=== PATIENT | female | born 1985 | race Caucasian/White ===

== ENCOUNTER → 2020-12-02 08:44 | Outpatient (CLI) | payer BC, SELFPAY ==
--- NOTE | ~2020-12-02 | MMUS_ITS ---
EXAMINATION: MM diag amalia implant BI w anam, US breast BI complete HISTORY: Rest pain with fibrocystic changes TECHNIQUE: Additional 3-D tomosynthesis images of the breasts were performed and synthetic 2-D images were generated. CAD analysis was submitted and interpreted. High resolution complete bilateral breas t ultrasound was performed. COMPARISON: None BREAST PARENCHYMAL COMPOSITION: The breasts are heterogenously dense, which may obscure small masses. FINDINGS: MAMMOGRAPHIC FINDINGS: There are no suspicious masses, calcifications or architectural distortion in either breast to sugges t malignancy. ULTRASOUND: Right breast ultrasound: At 1:00, 1 cm from the nipple, there is a cluster of microcysts measuring up to 1.2 cm conglomeration. At 2:00, 2 cm from the nipple, there is a 3 mm cyst. No suspicious masses to suggest malignancy. Left breast ultrasound: Normal heterogeneous echotexture without focal mass. IMPRESSION: 1. No evidence for malignancy in either breast. 2. Routine yearly screening mammogram and regular clinical breast examination are recommended. BI-RADS Category 2: Benign finding(s). Reviewed, dictated and finalized at location A. IMPRESSION: 1. No evidence for malignancy in either breast. 2. Routine yearly screening mammogram and regular clinical breast examination a re recommended. BI-RADS Category 2: Benign finding(s).
== END ==
PROVIDERS: Visit Provider Obstetrics & Gynecology
DX: N64.4 Mastodynia (principal)
CPT/HCPCS: 76641; 77062; 77066; G0279

== ENCOUNTER 2022-02-04 09:25 | Emergency (ER) | payer BC, SELFPAY ==
[2022-02-04 09:36] VITALS: BP 148/87; PULSE 72; RESP 16; TEMP 36.7; O2SAT 98
--- NOTE | 2022-02-04 10:06 | ED.SKABFB ---
HPI - Skin/Abscess/Foreign Bdy General Chief complaint: Skin/Abscess/Foreign Body Stated complaint: Possible Shingles on Face Time Seen by Provider: 02/04/22 09:28 Source: patient Mode of arrival: ambulatory Limitations: no limitations History of Present Illness HPI narrative: This is a 36-year-old female that presents to the emergency department for rash noted on her face today. Reports she initially noted some burning and itching on the right side of her face. She then noted a blistering rash in the area. Reports previous history of shingles in this area. Her symptoms feel the same as previous episode. Does report increased stress in her life recently. Denies fever, or any new soaps, lotions or detergents. Related Data Allergies Allergy/AdvReac Type Severity Reaction Status Date / Time No Known Allergies Allergy Verified 02/04/22 09:46 Review of Systems Review of Systems: CONSTITUTIONAL: Denies fever SKIN: Reports rash and itching. All systems reviewed & are unremarkable except as noted in HPI and below PMFSH Past Medical History Medical History Acute serous otitis media Anxiety B12 deficiency BMI 27.0-27.9,adult Depression Encounter to establish care Generalized anxiety disorder with panic attacks Family History Family History Father Heart disease Mother Alcoholism Hypertension Depression Thyroid disorder Grandparent Hypertension Heart disease Grandparent Diabetes mellitus Hypertension Depression Cerebrovascular accident Social History Social History Smoking status: Never smoker Alcohol intake: current Alcohol use details: rarely Substance use: never Substance use type: does not use Exam Narrative: GENERAL: Well-appearing, well-nourished, and in no acute distress. HEAD: Normocephalic, atraumatic. EYES: EOMI. ENT: Nares clear, no rhinorrhea or epistaxis. Mucous membranes moist. Oropharynx without tonsillar hypertrophy exudate or other lesions. Bilateral TMs pearly tyson non-bulging NECK: Supple. No adenopathy or masses. CHEST: No respiratory distress. HEART: Regular rate EXTREMITIES: Normal range of motion. No edema. SKIN: Warm, dry. Right cheek with papulovesicular lesions in a group NEURO: No focal deficits. Alert and oriented x3. PSYCH: Normal mood and affect Course Vital Signs Vital signs: Vital Signs Temperature 98.1 F 02/04/22 09:36 Pulse Rate 72 02/04/22 09:36 Respiratory Rate 16 02/04/22 09:36 Blood Pressure 148/87 H 02/04/22 09:36 Pulse Oximetry 98 02/04/22 09:36 Temperature 98.1 F 02/04/22 09:36 Pulse Rate 72 02/04/22 09:36 Respiratory Rate 16 02/04/22 09:36 Blood Pressure 148/87 H 02/04/22 09:36 Pulse Oximetry 98 02/04/22 09:36 MDM - Skin/Abscess/Foreign Bdy MDM Narrative Medical decision making narrative: Patient presents to the emergency department for a rash that appears consistent with herpes zoster. Patient does report previous history of this in the same distribution. Will be started on oral antivirals. Instructed to follow-up with her primary doctor. She was given warnings to return to the ER Critical Care Time Critical Care Time Critical Care Time: No Discharge Plan Discharge Clinical Impression: Herpes zoster Qualifiers: Herpes zoster complications: without complications Qualified Code(s): B02.9 - Zoster without complications Patient Disposition: Home, Self-Care Condition: Stable Instructions: Shingles (ED) Additional Instructions: Return to the emergency department if you experience fever, eye involvement, abnormal drainage from your wounds, or any other symptoms that are concerning to you Take Valacyclovir as prescribed Follow up with your primary care doctor Prescriptions: New valacyclovir 1 gram tablet 1,000 mg PO Q
== END 2022-02-04 10:20 | disposition home or self-care (01) ==
PROVIDERS: Emergency Provider Emergency Medicine; PCP Nurse Practitioner Family
DX: B02.9 Zoster without complications (principal); E53.8 Deficiency of other specified B group vitamins; F32.A Depression, unspecified; F41.1 Generalized anxiety disorder
CPT/HCPCS: 99283

== ENCOUNTER 2022-06-03 01:55 | Emergency (ER) | payer BC, SELFPAY ==
[2022-06-03] VITALS (24 sets, daily range): BP systolic 110–168; BP diastolic 68–109; PULSE 63–101; RESP 16–24; TEMP 36.5–37.2; O2SAT 91–100
--- NOTE | ~2022-06-03 | CT_ITS ---
EXAMINATION: CT abdomen pelvis wo con DATE: 06/03/2022 02:54 INDICATION: Right flank pain. TECHNIQUE: Computed tomography (CT) of the abdomen and pelvis was performed without intravenous contr ast. Automated exposure control and iterative reconstruction technique were employed. The dose-length product was 419.82 mGy-cm. COMPARISON: None. FINDINGS: The visualized portions of the lung bases demonstrate mild atelectasis. No pleural effusion . The heart size is normal. No pericardial effusion. Pectus excavatum is noted. There are bilateral b reast implants. The liver, gallbladder, spleen, pancreas, adrenal glands, and kidneys are normal. The re is diffuse wall thickening in the bladder. There is fat stranding around the right ureter. A calci fication in right pelvis is likely a phlebolith. There is an intrauterine device in expected position . There is diverticulosis of the colon without evidence of diverticulitis. There are no dilated loops of bowel. The appendix is normal. There are no pathologically enlarged lymph nodes. There is no free intraperitoneal fluid. There is severe lower lumbar spondylosis. IMPRESSION: 1. Diffuse bladder wall thickening and fat stranding around the right ureter suspicious for urinary t ract infection. Reviewed, dictated and finalized at location A. IMPRESSION: 1. Diffuse bladder wall thickening and fat stranding around the right ureter preston spicious for urinary tract infection.
--- NOTE | 2022-06-03 02:03 | PC.NURSE ---
Patient states her right flank pain started at approx 2330 last night and radiates to her lower abd. Patient also states increased urinary frequency. Patient states some nausea. Patient denies history of kidney stone.
--- NOTE | 2022-06-03 02:08 | ED.GENADULT ---
HPI - General Adult General Chief complaint: Abdominal Pain <Gabriel Robledo MD - Last Filed: 06/03/22 02:10> Stated complaint: abdominal pain <Gabriel Robledo MD - Last Filed: 06/03/22 02:10> Time Seen by Provider: 06/03/22 02:04 <Gabriel Robledo MD - Last Filed: 06/03/22 02:10> History of Present Illness HPI narrative: Patient is a 37-year-old female who presents the emergency department with chief complaint of right-sided flank and abdominal pain. The patient reports that around 11 PM she had sudden onset of sharp pain reports it radiates to the front of her abdomen reports she had nausea but this reports has not had pain like this before. Patient states originally she thought she had gas but it was in the past and reports that the pain is not improved by report she is unable to get comfortable in any position. Patient reports she has an IUD <Gabriel Robledo MD - Last Filed: 06/03/22 02:10> Related Data Allergies/adverse reactions: Allergies Allergy/AdvReac Type Severity Reaction Status Date / Time No Known Allergies Allergy Verified 06/03/22 02:03 <Gabriel Robledo MD - Last Filed: 06/03/22 02:10> Review of Systems Review of Systems: A 10 system review of systems was completed on the patient and is negative except for what is stated in the HPI. Nursing and ancillary documentation was reviewed. <Gabriel Robledo MD - Last Filed: 06/03/22 02:10> [facility] Past Medical History Medical History: Medical History Acute serous otitis media Anxiety B12 deficiency BMI 27.0-27.9,adult Depression Encounter to establish care Generalized anxiety disorder with panic attacks Herpes zoster (02/04/22) recurrent shingles right face 2nd episode 02/04/2022 <Gabriel Robledo MD - Last Filed: 06/03/22 02:10> Family History Family History: Family History Father Heart disease Mother Alcoholism Hypertension Depression Thyroid disorder Grandparent Hypertension Heart disease Grandparent Diabetes mellitus Hypertension Depression Cerebrovascular accident <Gabriel Robledo MD - Last Filed: 06/03/22 02:10> Social History Social History: Social History Smoking status: Never smoker Alcohol intake: current Drinks per week: 6 Alcohol use details: rarely Substance use: never Substance use type: does not use <Gabriel Robledo MD - Last Filed: 06/03/22 02:10> Exam Narrative: GENERAL: Well-appearing, well-nourished, and in no acute distress. HEAD: Normocephalic, atraumatic. EYES: PERRLA and EOMI. ENT: Nares clear, no rhinorrhea or epistaxis. Mucous membranes moist. NECK: Supple. CHEST: Clear to auscultation. No respiratory distress. HEART: Regular rate and rhythm. No murmur heard. Normal peripheral pulses. ABDOMEN: Soft, nontender, nondistended, normal active bowel sounds. EXTREMITIES: Normal range of motion. No edema. SKIN: Warm, dry, no rash. NEURO: No focal deficits. Alert and oriented x3. PSYCH: Normal mood and affect. <Gabriel Robledo MD - Last Filed: 06/03/22 02:10> Course Reevaluation(s) Reevaluation #1: Patient states she feels better. I discussed CT showing cystits and possible pyelonephritis. She will be given dose of rocephin in ER. She feels comfortable with discharge with antibiotics and pain medications. <Shelbi Soto MD - Last Filed: 06/03/22 17:32> Date: 06/03/22 <Shelbi Soto MD - Last Filed: 06/03/22 17:32> Time: 08:45 <Shelbi Soto MD - Last Filed: 06/03/22 17:32> Vital Signs Vital signs: Vital Signs Temperature 98.9 F 06/03/22 02:00 Pulse Rate 87 06/03/22 02:00 Respiratory Rate 24 H 06/03/22 02:00 Blood Press
[2022-06-03] MEDS: SODIUM CHLORIDE 0.9% IV 1,000 ML 999 ML IV CONT (02:11)
[2022-06-03] MEDS: ONDANSETRON INJ 4 MG/2 ML VIAL IV PUSH ×2 (02:12→08:53)
[2022-06-03] MEDS: MORPHINE SULFATE (*CRX) 4 MG/ML INJ IV PUSH ×2 (02:12→03:05)
--- NOTE | 2022-06-03 02:39 | PC.NURSE ---
Patient taken to CT via stretcher.
[2022-06-03 02:41] LABS: Appearance Urine Clear (Clear); Bilirubin Urine Negative (Negative); Blood Urine 3+ (Negative); Color Urine Yellow (Yellow); Glucose Urine UA Negative (Negative); Ketones Urine Negative (Negative); Leukocyte Esterase Ur 1+ LEU/UL (Negative); Nitrate Urine Positive (Negative); Protein Urine 3+ mg/dL (Negative); Specific Grav Ur 1.025 (1.001-1.035); Urobilinogen Urine 0.2 mg/dL (<2.0)
[2022-06-03 02:42] LABS: Basophils Absolute Auto 0.1 K/mm3 (0.0-0.1); Basophils Percent Auto 0.6 % (0.2-1.2); Eosinophils Absolute Auto 0.4 K/mm3 (0-0.3); Eosinophils Percent Auto 2.6 % (0-4.4); Hematocrit 39.1 % (37.0-47.0); Hemoglobin 13.3 g/dL (12.0-15.0); Immature Granulocyte Absolute 0.07 K/mm3 (0.00-0.031); Immature Granulocyte Percent A 0.5 % (0-0.5); Lymphocytes Absolute Auto 3.23 K/mm3 (0.9-3.2); Mean Corpuscular Hemoglobin 31.9 pg (26-34); Mean Corpuscular Volume 93.8 fl (80-100); Mean Platelet Volume 11.2 fl (7.4-10.4); Monocytes Absolute Auto 1.1 K/mm3 (0.1-0.6); Neutrophils Absolute Auto 10.5 K/mm3 (1.3-6.7); Neutrophils Percent Auto 68.3 % (45.5-73.1); Platelet Count Result 302 k/mm3 (150-375); Red Blood Count 4.17 M/mm3 (4.2-5.4); Red Cell Distribution Width 12.5 % (11.5-14.5); White Blood Count 15.4 K/mm3 (4.5-10.0)
[2022-06-03 02:49] LABS: Bacteria Urine Trace /hpf; Mucus Urine Rare /lpf; RBC Urine >75 /hpf (0-2); Squamous Epithelial Cell Urine Many /hpf (Few); WBC Clumps Urine Present /HPF; WBC Urine >75 /hpf
[2022-06-03 02:50] LABS: Add Urine Microscopic? YES
[2022-06-03 03:08] LABS: Alanine Aminotransferase 17 U/L (6-35); Albumin Level 4.9 g/dL (3.5-5.1); Alkaline Phosphatase 68 U/L (38-126); Anion Gap 12 mmol/L (8-16); Aspartate Amino Transferase 26 U/L (14-36); Bilirubin,Total 0.8 mg/dL (0.2-1.3); Blood Urea Nitrogen 15 mg/dL (7-17); Calcium 9.9 mg/dL (8.4-10.2); Carbon Dioxide 25 mmol/L (22-30); Chloride 99 mmol/L (98-107); Estimated CRCL calculation 81 ml/min; Estimated Glomerular Filt Rate > 60; Glucose 101 mg/dL (65-110); Lipase 45 U/L (23-300); Potassium 3.5 mmol/L (3.4-5.0); Sodium 136 mmol/L (137-145)
[2022-06-03 03:10] LABS: Lactic Acid Reflex 0.9 mmol/L (0.7-2.0)
== END 2022-06-03 10:03 | disposition home or self-care (01) ==
PROVIDERS: Emergency Medicine; Emergency Provider General Practice; PCP Nurse Practitioner Family
DX: R10.9 Unspecified abdominal pain (principal); N12 Tubulo-interstitial nephritis, not specified as acute or chronic; N30.90 Cystitis, unspecified without hematuria; F32.A Depression, unspecified; F41.1 Generalized anxiety disorder
CPT/HCPCS: 36415; 74176; 80053; 81001; 81025; 83605; 83690; 85025; 87077; 87086; 87186; 96361; 96365; 96375; 96376; 99284; J0696; J2270; J2405; J7030

== ENCOUNTER 2022-06-07 02:07 | Day surgery (SDC) | payer BC, SELFPAY ==
[2022-06-01 10:56] VITALS: BMI 26.4
--- NOTE | 2022-06-01 11:03 | PC.NURSE ---
Report to the Outpatient Waiting Room, entrance under the green pavilion located off [facility], at time 1100__ on date _06/07/22_. OR Time: ___1300_. Time changes happen often and if your time is changed the preop area will call you the afternoon before. - You and your visitor will be asked to self-screen and do not enter if you have any COVID symptoms. - Only one visitor and NO children visitors are allowed at this time. - The patient visitor is requested to leave or wait in car when not with patient due to restrictions. - A mask is required within the hospital. Patients may have clear liquids (water, carbonated beverages, clear teas, apple juice) until 3 hours prior to surgery with a maximum of 20 ounces. - No food from midnight until time of surgery - Infants may have breast milk until 4 hours before surgery, infant formula 6 hours prior to surgery. - Children will be allowed to drink immediately following surgery. If applicable, please bring a bottle or sippy cup to assist with drinking. Juice, water, soda, and popsicles are readily available. For infants on formula, please bring formula the day of surgery. Pacifiers are allowed. Take the following medications with a SIP of water the morning of surgery: ____XANAX, ESCITALOPRAM Medications to discontinue per physician NONE Date to take last dose Please no make-up, nail turkmen, hairspray, perfume, deodorant, or body powder the day of surgery. No jewelry (including any body piercings) or valuables the day of surgery, leave them at home. Please take a shower or bath the night before, or the morning of, surgery with an antibacterial soap. Wear comfortable, loose fitting clothing. Children are encouraged to wear pajamas. - Jewelry must be removed prior to entering the operating room. Rings and piercings that are not removed may be cut off. - The hospital will not accept responsibility for valuables. - Please leave all valuables, including medications, at home the day of surgery. If you are going home after surgery, a licensed courtesy bus driver must drive you home. - NO public transportation without another adult. - We recommend that an adult stay with you for 24 hours following discharge. - We also recommend that you do not drive, make important decision, drink alcoholic beverages, or take any drugs that were not prescribed by your health care provider for at least 24 hours after your discharge time. For Pediatric surgeries, we recommend two adults accompany the child home (only one inside the building at this time). Follow any additional instructions given to you from your surgeon. If you or anyone in your household have experienced Covid symptoms in the past week, please notify your surgeon or the nurse liaison at the phone number below for possible testing. Telephone instructions given to _PATIENT__and asked if any additional questions and then verbalized understanding. Patient advised to call surgeon office or pre surgery nurse liaison [phone] if any additional questions.
[2022-06-07] VITALS (8 sets, daily range): BP systolic 110–128; BP diastolic 7–86; PULSE 56–74; RESP 12–18; TEMP 36.5–37.3; O2SAT 100
[2022-06-07] MEDS: LACTATED RINGERS 1,000 ML 30 ML IV CONT ×2 (11:45→14:11)
--- NOTE | 2022-06-07 11:45 | PM.IMHP ---
H&P: HPI History of Present Illness Date/Time: 06/07/22 11:45 Chief Complaint: Heavy bleeding. Narrative: 37 y/o with a Mirena IUD. She desires permanent contraception. Moreover, when she does not have an IUD in place, she has very heavy menses. She desires surgical management. Review of Systems Review of Systems: All systems reviewed & are unremarkable except as noted in HPI and below PMFSH Past Medical History Medical History (Updated 06/07/22 @ 11:49 by Satish English MD) Acute serous otitis media Anxiety B12 deficiency BMI 27.0-27.9,adult Depression Encounter to establish care Generalized anxiety disorder with panic attacks Herpes zoster (02/04/22) recurrent shingles right face 2nd episode 02/04/2022 Surgical History Surgical History History of abdominoplasty History of breast augmentation History of repair of ACL Family History Family History Father Heart disease Mother Alcoholism Hypertension Depression Thyroid disorder Grandparent Hypertension Heart disease Grandparent Diabetes mellitus Hypertension Depression Cerebrovascular accident Social History Social History Smoking status: Never smoker Alcohol intake: current Drinks per week: 6 Alcohol use details: rarely Substance use: never Substance use type: does not use Living arrangements: with family Meds Home Medications and Allergies Home Medications Medication Instructions Recorded Confirmed Type escitalopram oxalate 10 mg tablet 10 mg PO DAILY #30 tabs 12/13/21 06/07/22 Rx (Lexapro) alprazolam 0.25 mg tablet 0.25 mg PO TID PRN anxiety #90 tabs 01/31/22 06/07/22 Rx cefpodoxime 200 mg tablet 200 mg PO BID #20 tabs 06/03/22 06/07/22 Rx hydrocodone 5 mg-acetaminophen 325 1 tablet PO Q6H PRN pain #10 tabs 06/03/22 06/07/22 Rx mg tablet ondansetron 4 mg disintegrating 4 mg PO Q6H PRN nausea and 06/03/22 06/07/22 Rx tablet vomiting #10 tabs Allergies Allergy/AdvReac Type Severity Reaction Status Date / Time No Known Allergies Allergy Verified 06/03/22 02:03 Exam Const: Orientation/consciousness: patient oriented x3 Other: Well-developed, well-nourished female in no acute distress. Neck: Thyroid: thyroid normal Lymphatic: no lymphadenopathy noted (in neck, axilla or inguinal nodes) Resp: Effort & Inspection: normal respiratory effort Auscultation: clear to auscultation bilaterally Cardio: Rate: regular rate Rhythm: regular rhythm Heart sounds: S1 normal heart sound present and S2 normal heart sound present GI: Other: ABD: Soft, nontender, nondistended. No guarding or rebound tenderness. No hepatosplenomegaly. : General: Yes no CVA tenderness Other: External genitalia: normal female hair distribution, without lesion. Urethral meatus: no lesion, non prolapsed. Bladder: no mass, nontender Vagina: well-estrogenized, without lesion or discharge. No cystocele or rectocele. Cervix: no lesion or discharge. Uterus: small, anteverted, freely mobile, nontender Adnexa: no mass or tenderness. Anus/perineum: no lesions, nontender Back/Spine/Pelvis: Back: no CVA tenderness Skin: General skin exam: normal color and no rashes or lesions noted Neuro: General: patient oriented x3 Extrem: Other: Extremities: nontender with no edema Psych: Mental Status: mental status grossly normal Affect: normal affect Assessment and Plan Assessment and plan (1) Unwanted fertility: Code(s): Z30.09 - Encounter for other general counseling and advice on contraception Status: Acute Assessment and Plan: A: Desired sterility. Menometrorrhagia. P: We reviewed medical as well as surgical management of her problem. She desires the latter. Specifically, she would like laparoscopic bilateral tubal shai
--- NOTE | 2022-06-07 12:06 | WPDHPUPDATE1 ---
History and Physical Update Update Date/Time: 06/07/22 12:06 History and Physical has been reviewed, including an updated exam of the patient. There are NO changes in the patient's condition. Risks, benefits, and alternatives have been discussed and questions answered. Patient agrees to proceed with procedure.
--- NOTE | 2022-06-07 12:33 | WPDANESEPPF ---
Anes - Initial Pre Proc Eval Procedure: Operation Date: 06/07/22 13:00 Proposed Procedures p Laparoscopic Bilateral Tubal Sterilization with Fallopian Rings, - Satish English MD s Hysteroscopy, Dilation and Curettage, Terri Endometrial Ablation, Removal Intra Uterine Device - Satish English MD Date/Time: 06/07/22 12:33 Surgeon: Satish English MD Pre Op Diagnosis: heavy bleeding Patient Data Age: 37 Gender: F Height: 1.63 m Weight: 71.3 kg Last Vital Signs Temp 99.1 F 06/07/22 11:10 Pulse 69 06/07/22 11:10 Resp 16 06/07/22 11:10 BP 121/86 06/07/22 11:10 Pulse Ox 100 06/07/22 11:10 O2 Del Method Room Air 06/07/22 11:10 Allergies Allergy/AdvReac Type Severity Reaction Status Date / Time No Known Allergies Allergy Verified 06/03/22 02:03 Home Medications Medication Instructions Recorded Confirmed Type escitalopram oxalate 10 mg tablet 10 mg PO DAILY #30 tabs 12/13/21 06/07/22 Rx (Lexapro) alprazolam 0.25 mg tablet 0.25 mg PO TID PRN anxiety #90 tabs 01/31/22 06/07/22 Rx cefpodoxime 200 mg tablet 200 mg PO BID #20 tabs 06/03/22 06/07/22 Rx hydrocodone 5 mg-acetaminophen 325 1 tablet PO Q6H PRN pain #10 tabs 06/03/22 06/07/22 Rx mg tablet ondansetron 4 mg disintegrating 4 mg PO Q6H PRN nausea and 06/03/22 06/07/22 Rx tablet vomiting #10 tabs Patient hx anesthesia problems: post op nausea/vomiting Family hx anesthesia problems: none Results Review: All pre-operative results and documents have been reviewed as part of the pre-operative evaluation. [facility] Past Medical History Medical History (Updated 06/07/22 @ 11:49 by Satish English MD) Acute serous otitis media Anxiety B12 deficiency BMI 27.0-27.9,adult Depression Encounter to establish care Generalized anxiety disorder with panic attacks Herpes zoster (02/04/22) recurrent shingles right face 2nd episode 02/04/2022 Surgical History Surgical History History of abdominoplasty History of breast augmentation History of repair of ACL Family History Family History Father Heart disease Mother Alcoholism Hypertension Depression Thyroid disorder Grandparent Hypertension Heart disease Grandparent Diabetes mellitus Hypertension Depression Cerebrovascular accident Social History Social History Smoking status: Never smoker Alcohol intake: current Drinks per week: 6 Alcohol use details: rarely Substance use: never Substance use type: does not use Living arrangements: with family Anes - Eval Final PreProcedure Day of Procedure 06/07/22 12:33 Patient weight: normal Heart: regular rate and rhythm Lungs: clear to auscultation Airway: Mallampati scale class II Neurological: alert and oriented Last oral intake: >/= 8 hours ASA classification: II Emergent: no Anesthetic plan: proceed Anesthesia type and monitoring: general GIVS and standard monitoring Results Review: All pre-operative results and documents have been reviewed as part of the pre-operative evaluation. Informed Consent: The patient's anesthetic plan and its attendant risks and benefits were discussed with the patient/family/POA. Questions were solicited and answers provided to the satisfaction of the patient/family/POA.
[2022-06-07] MEDS: SCOPOLAMINE 1.5 MG PATCH TRANSDERM (13:00)
[2022-06-07] MEDS: LIDOCAINE HCL 1% PF 30 ML VIAL 16 ML INFILTRATE (13:11)
--- NOTE | 2022-06-07 14:04 | W.PM.PROC2 ---
Procedure Note - Detailed Date of Procedure 06/07/22 Pre-op Diagnosis Desired sterility Menorrhagia Post-op Diagnosis Same Procedure Performed Laparoscopic bilateral tubal ligation with Falope rings Removal of IUD Hysteroscopy Dilation and sharp curettage Endometrial ablation Surgeon Satish English MD Anesthesia General and Regional (1% lidocaine) Findings Normal-appearing RUQ anatomy. Vermiform appendix normal appearing. Small, simple-appearing cyst on left ovary. Otherwise, unremarkable uterus, bilateral tubes and ovaries, anterior and posterior cul de sac, bilateral round and uterosacral ligaments. The IUD was unremarkable. The uterus was retroverted. The endometrial cavity was unremarkable and both tubal ostia were seen. The uterus sounded to a depth of 8 cm with a cervical length of 3.5 cm. Description of Procedure The patient was taken to the operating room where general endotracheal anesthesia was administered. She was prepared and draped in the usual sterile fashion in dorsal lithotomy position. The bladder was drained with a red rubber catheter. A sterile speculum was placed into the vagina. The anterior lip of the cervix was grasped with a single-tooth tenaculum. The acorn uterine manipulator was placed. The speculum was withdrawn. Gloves were changed and attention was turned the abdomen. An infraumbilical skin incision was made with a scalpel. The abdomen was tented and a 5mm bladeless trocar was advanced under direct laparoscopic visualization. Pneumoperitoneum was administered using carbon dioxide gas. A survey of the pelvis and abdomen revealed the findings noted above. A second skin incision was made in the midline above the symphysis pubis and an 8mm bladeless trocar was advanced under direct laparoscopic visualization. The fallopian tube on the right side was followed out to the fimbriated end for identification. It was then grasped in the midportion with the Falope ring applicator. The Falope ring was applied. A good loop of tube was noted to be distal to the ring. Hemostasis was excellent. The device was reloaded and the contralateral tube was similarly identified and ligated. An excellent application was noted here as well. A total of 9mL of 1% lidocaine was infiltrated into the serosa of the proximal tubes for postoperative anesthesia. The ports were withdrawn. The gas was allowed to escape. The skin incisions were reapproximated using interrupted subcuticular sutures of 4 0 Vicryl. Dermaflex was applied externally. Attention was redirected to the vagina where the acorn manipulator was withdrawn and the sterile speculum was reintroduced. The anterior lip of the cervix was grasped with single-tooth tenaculum. The IUD strings were grasped and the IUD was easily removed, intact, and discarded. Ten mL of 1% lidocaine was administered in a paracervical block. The cervix was then gently dilated using Hegar dilators until an 8 mm dilator could be passed. Hysteroscopy was performed using sterile saline as a distention medium. Findings are as noted above. Sharp curettage was then performed, and endometrial curettings were collected on a Telfa pad and passed off to be sent to pathology. Finally, the the Terri device was advanced and endometrial ablation commenced without difficulty. The device was withdrawn and a second look was taken using the hysteroscope. Excellent coverage of the endometrial cavity was noted. The tenaculum was removed. Hemostasis was excellent. Sponge, lap, needle and instrument counts were correct. The patient was awakened and taken to the recovery room in stable condition. I was present and scrubbed through the entire procedure. Implants Falope rings x 2 Estimated Blood Loss 5 Drains No Packing No Pathology Yes (Endometrial curettings) Complications None Condition Stable Disposition PACU
[2022-06-07] MEDS: fentaNYL CITRATE INJ (*CRX) 100 MCG/2 ML VIAL 25 MCG IV PUSH ×8 (14:25→15:48)
[2022-06-07] MEDS: KETOROLAC 30 MG/ML VIAL (*BKC) IV PUSH (14:53)
[2022-06-07] MEDS: oxyCODONE HCL (*CRX) 5 MG TAB IR PO (15:11)
== END 2022-06-07 16:15 | disposition home or self-care (01) ==
PROVIDERS: PCP Nurse Practitioner Family; Visit Provider Obstetrics & Gynecology
PROC: (CPT 58671; principal; 2022-06-07 13:00)
PROC: 0U5B8ZZ Destruction of Endometrium, Via Natural or Artificial Opening Endoscopic (ICD-10-PCS; CPT 58563; 2022-06-07 13:00)
DX: N92.1 Excessive and frequent menstruation with irregular cycle (principal); Z30.2 Encounter for sterilization; N83.202 Unspecified ovarian cyst, left side; Z30.432 Encounter for removal of intrauterine contraceptive device; F41.9 Anxiety disorder, unspecified; F32.A Depression, unspecified
CPT/HCPCS: 58671; 58301; 58563; 88305; A4264; A9270; J1100; J1885; J2250; J2405; J2704; J2710; J3010; J7030; J7120

== ENCOUNTER → 2023-08-01 08:11 | Outpatient (CLI) | payer BC, SELFPAY ==
--- NOTE | ~2023-08-01 | MMUS_ITS ---
EXAMINATION: MM diag amalia implant BI w anam, US breast LT limited HISTORY: Palpable lump in the upper outer quadrant of the left breast TECHNIQUE: Craniocaudal, mediolateral, and mediolateral oblique 3-D tomosynthesis images with implant displacement of the breasts were performed and synthetic 2-D images were generated. Craniocaudal, m ediolateral oblique, and mediolateral views of the breasts without implant displacement were obtained using full field digital mammography. CAD analysis was submitted and interpreted. High resolution le ft breast ultrasound was performed. COMPARISON: 12/02/2020 BREAST PARENCHYMAL COMPOSITION: The breasts are heterogeneously dense, which may obscure small masses . FINDINGS: MAMMOGRAPHIC FINDINGS: No suspicious mass, calcification, or architectural distortion are identified in either breast to sug gest malignancy. There has been no suspicious interval change. No mammographic correlate is identifie d for the reported palpable abnormality of concern of the left breast. ULTRASOUND: There is a benign appearing lymph node at the 2:00 location, 10 cm from the nipple of the left breast corresponding to the palpable abnormality of concern. No suspicious cystic or solid mass is identifi ed. IMPRESSION: 1. No mammographic or sonographic evidence of malignancy. 2. Recommend routine screening mammography in one year. BI-RADS Category 2: Benign finding(s). Reviewed, dictated and finalized at location A. BURNER TECHNICIAN IMPRESSION: 1. No mammographic or sonographic evidence of malignancy. 2. Recommend routine screening mammography in one year. BI-RADS Category 2: Benign finding(s).
== END ==
PROVIDERS: PCP Obstetrics & Gynecology; Visit Provider Obstetrics & Gynecology
DX: R92.8 Other abnormal and inconclusive findings on diagnostic imaging of breast (principal)
CPT/HCPCS: 76642; 77062; 77066; G0279

== ENCOUNTER 2023-08-10 00:51 | Emergency (ER) | payer BC, SELFPAY ==
--- NOTE | ~2023-08-10 | XR_ITS ---
EXAMINATION: XR chest 1V portable INDICATION: Shortness of breath and chest tightness TECHNIQUE: Portable AP chest at 0152 hours COMPARISON: None available FINDINGS: There are minimal airspace opacities of the right lung base. No pleural effusion or pneumot horax. The cardiomediastinal silhouette is normal. IMPRESSION: 1. Minimal right basilar airspace opacity, consistent with atelectasis versus pneumonia. Reviewed, dictated and finalized at location F. EDICAL ENGINEERING PROFESSOR IMPRESSION: 1. Minimal right basilar airspace opacity, consistent with atelectasis versus p neumonia.
[2023-08-10 00:57] VITALS: BP 148/90; PULSE 112; RESP 28; TEMP 36.8; O2SAT 99
--- NOTE | 2023-08-10 01:40 | ECG_ITS ---
Measurements Intervals [place] Rate: 108 P: 53 NM: 134 QRS: 18 QRSD: 97 T: 26 QT: 325 QTc: 437 Interpretive Statements SINUS TACHYCARDIA POSSIBLE LEFT ATRIAL ENLARGEMENT LOW QRS VOLTAGE IN PRECORDIAL LEADS ABNORMAL ECG NO PREVIOUS ECG AVAILABLE FOR COMPARISON Electronically Signed On 08-10-2023 10:31:24 OCCUPATIONAL THERAPIST'S ASSISTANT by Fadi Brennan D.O.
[2023-08-10] MEDS: MIDAZOLAM HCL (*CRX) 2 MG/2 ML VIAL IM (01:46)
--- NOTE | 2023-08-10 02:01 | ED.GENADULT ---
HPI - General Adult General Chief complaint: Anxiety Stated complaint: anxiety Time Seen by Provider: 08/10/23 01:26 History of Present Illness HPI narrative: this is a 38-year-old female with a history of panic disorder presenting with her typical panic attack. Patient says that 10:30 p.m. she started to experience severe anxiety. He tried to treat this with breathing exercises and 0.25 mg of Ativan x3. However she was unable to get it under control. Associated symptoms include palpitations, perioral tingling and shortness of breath. Related Data Allergies Allergy/AdvReac Type Severity Reaction Status Date / Time No Known Allergies Allergy Verified 06/03/22 02:03 [facility] Past Medical History Medical History (Updated 08/10/23 @ 02:06 by Tomas Martini MD) Acute serous otitis media Anxiety B12 deficiency BMI 27.0-27.9,adult Depression Encounter to establish care Generalized anxiety disorder with panic attacks Herpes zoster (02/04/22) recurrent shingles right face 2nd episode 02/04/2022 Surgical History Surgical History History of abdominoplasty History of breast augmentation History of repair of ACL Family History Family History Father Heart disease Mother Alcoholism Hypertension Depression Thyroid disorder Grandparent Hypertension Heart disease Grandparent Diabetes mellitus Hypertension Depression Cerebrovascular accident Social History Social History Smoking status: Never smoker Alcohol intake: current Drinks per week: 6 Alcohol use details: rarely Substance use: never Substance use type: prescription drug Living arrangements: with family Exam Narrative: APPEARANCE: No apparent distress. Head: atraumatic. EYES: EOMI, NOSE: Atraumatic NECK: Trachea midline RESPIRATORY: No increased rate of breathing Clear to auscultation CARDIOVASCULAR: tachycardic ABDOMINAL: Non-distended MUSCULOSKELETAl: No obvious deformities NEURO: Alert. Moving 4/4 extremities SKIN:: Warm, dry. Normal color PSYCHIATRIC: anxious Course Vital Signs Vital signs: Vital Signs Temperature 98.2 F 08/10/23 00:57 Pulse Rate 112 H 08/10/23 00:57 Respiratory Rate 28 H 08/10/23 00:57 Blood Pressure 148/90 H 08/10/23 00:57 Pulse Oximetry 99 08/10/23 00:57 Oxygen Delivery Room Air 08/10/23 00:57 Temperature 98.2 F 08/10/23 00:57 Pulse Rate 112 H 08/10/23 00:57 Respiratory Rate 28 H 08/10/23 00:57 Blood Pressure 148/90 H 08/10/23 00:57 Pulse Oximetry 99 08/10/23 00:57 Oxygen Delivery Room Air 08/10/23 00:57 Medical Decision Making [facility] Narrative Medical decision making narrative: -Course: 38-year-old female presenting with panic attack. Given 2 mg of IM Versed with improvement symptoms. Patient will be discharged follow-up with primary care physician. -DDX includes but is not limited to: anxiety, panic disorder, pneumonia, PE, pneumothorax -Co-morbidities complicating care: anxiety, depression -Social determinants of health: works in [employer] -Independent interpretation of studies: chest x-ray showed Right basilar atelectasis. Independent EKG interpretation: Rhythm [sinus], Rate [], Reedy -[normal], HI -[normal], QRS [narrow], QTC [normal], T waves -[negative for concerning inversions], ST Segments - [Negative for concerning elevations] Final interpretations: [Normal Sinus Rhythm] -Interventions: 2 mg IM Versed -Shared decision making / Disposition: discharged Vital Signs Vital Signs: Vital Signs Temperature 98.2 F 08/10/23 00:57 Pulse Rate 112 H 08/10/23 00:57 Respiratory Rate 28 H 08/10/23 00:57 Blood Pressure 148/90 H 08/10/23 00:57 Pulse Oximetry 99 08/10/23 00:57 Oxygen Delivery Room Air 08/10/23 00:57 Temperature 98.2 F 08/10/23 00
[2023-08-10 02:26] VITALS: BP 138/66; PULSE 96; RESP 15; O2SAT 100
== END 2023-08-10 02:27 | disposition home or self-care (01) ==
PROVIDERS: Emergency Provider Emergency Medicine; PCP Nurse Practitioner Family
DX: F41.0 Panic disorder [episodic paroxysmal anxiety] (principal); E53.8 Deficiency of other specified B group vitamins; F32.A Depression, unspecified; R00.0 Tachycardia, unspecified; R94.31 Abnormal electrocardiogram [ECG] [EKG]
CPT/HCPCS: 71045; 93005; 96372; 99283; J2250

== ENCOUNTER 2024-12-08 14:28 | Outpatient (CLI) | payer BC, SELFPAY ==
--- NOTE | ~2024-12-08 | MM_ITS ---
EXAMINATION: MM scrn amalai implant BI w anam HISTORY: Screening TECHNIQUE: Craniocaudal and mediolateral oblique 3-D tomosynthesis images were obtained and synthetic 2-D images were generated. CAD analysis was submitted and interpreted. Implant displaced views were also performed. COMPARISON: 08/01/2023 and 12/02/2020 BREAST PARENCHYMAL COMPOSITION: The breasts are heterogeneously dense, which may obscure small masses . FINDINGS: Punctate calcifications are detected bilaterally, stable and benign in appearance. Stable parenchymal pattern without suspicious microcalcifications, architectural distortion, discrete masses or significant asymmetry. IMPRESSION: 1. No mammographic evidence of malignancy. 2. Recommend routine screening mammography in one year. BI-RADS Category 2: Benign finding(s). Reviewed, dictated and finalized at location A.
== END 2024-12-08 14:29 | disposition home or self-care (01) ==
PROVIDERS: PCP Nurse Practitioner Family; Visit Provider Obstetrics & Gynecology
DX: Z12.31 Encounter for screening mammogram for malignant neoplasm of breast (principal)
CPT/HCPCS: 77063; 77067